=== PATIENT | male | born 1975 | race Caucasian/White ===

== ENCOUNTER 2019-04-02 16:04 | Emergency (ER) | payer MEDICARE, MEDICAID ==
[~2019-04-02] VITALS: Ht 167.6 cm; Wt 67.0 kg
[2019-04-02 17:26] VITALS: BP 130/85
== END 2019-04-02 21:45 | disposition left against medical advice (07) ==
LOC: ER 16:04
DX: R10.9 Unspecified abdominal pain (principal); Z53.21 Procedure and treatment not carried out due to patient leaving prior to being seen by health care provider